=== PATIENT | female | born 1965 | race African-American/Black ===

== ENCOUNTER → 2021-11-30 15:08 | Outpatient (BNVA) | payer OTHER, SELFPAY | PROVIDERS: PCP Internal Medicine; Visit Provider Psychiatry & Neurology Neurology | DX: G25.0 Essential tremor (principal); F20.9 Schizophrenia, unspecified; Z79.899 Other long term (current) drug therapy | CPT/HCPCS: 99212 ==

== ENCOUNTER → 2022-01-27 15:21 | Outpatient (BNVA) | payer OTHER, SELFPAY | PROVIDERS: PCP Internal Medicine; Visit Provider Psychiatry & Neurology Neurology | DX: G25.0 Essential tremor (principal) | CPT/HCPCS: 99212 ==

== ENCOUNTER → 2022-02-27 10:50 | Outpatient (BNVA) | payer OTHER, SELFPAY | PROVIDERS: PCP Internal Medicine; Visit Provider Psychiatry & Neurology Neurology | DX: G25.0 Essential tremor (principal) | CPT/HCPCS: 99212 ==

== ENCOUNTER → 2022-03-29 09:43 | Outpatient (BNVA) | payer OTHER, SELFPAY | PROVIDERS: PCP Internal Medicine; Visit Provider Nurse Practitioner Family | DX: G25.0 Essential tremor (principal) | CPT/HCPCS: 99212 ==

== ENCOUNTER 2023-12-06 14:46 | Outpatient (AMB) | payer OTHER, SELFPAY ==
--- NOTE | 2023-12-06 15:00 | MHC.OFFVIS ---
Intake Vital Signs 12/06/23 15:06 Height 5 ft 8 in Weight 185 lb 2 oz BMI 28.1 BP 120/72 Blood Pressure Location Rt brachial Position Sitting Pulse 61 Pulse Source Pulse Oximeter Pulse Oximetry (%) 99 Oxygen Delivery Method Room Air Intake Visit Reasons: f/u for Tremors-Confirmed Intake Note: Patient presents F/U for tremors. she needs medication that works Allergies No Known Allergies Allergy (Verified 12/06/23 15:03) Medication List - Last Reconciled 12/06/23 by Aquiles Calderón CNP [id number] alafen [phone] mg (Genvoya) 1 tab PO DAILY hydroxyzine HCl 10 mg PO BID HPI HPI Comments History of Present Illness Details 56 y/o female patient presets for follow up of bilateral upper extremity tremor. Pt's last follow up was March 2022. Pt reports she stopped propranolol, benztropine and zonisamide. She thought it did not help and stopped it. Pt states that her tremor is really bad now, and can't write and feed patient. 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 Pt was on Zyprexa, but it stopped in 2021. Pt wants to retry benztropine. [facility] Medical History Asthma HIV (human immunodeficiency virus infection) Schizophrenia Surgical History History of ankle surgery Family History Father HTN (hypertension) Stroke Mother Tremors of nervous system Social History Alcohol intake: never Patient Tobacco Use Status: Never used Tobacco Substance Use Type: Marijuana Review of Systems ENT Reports Normal hearing present Neuro Reports Normal hearing present Physical Exam Vital Signs: Last Vital Signs Pulse 61 12/06/23 15:06 BP 120/72 12/06/23 15:06 Pulse Ox 99 12/06/23 15:06 Oxygen Delivery Method Room Air 12/06/23 15:06 BMI result Body Mass Index 28.1 Const General: cooperative and no acute distress Nutritional Appearance: average body habitus Orientation/consciousness: patient oriented x3 Neck Neck: Yes full ROM and Yes supple Resp Effort & Inspection: normal respiratory effort and able to speak in complete sentences Neuro General: patient oriented x3, gait normal and moves all extremities Cranial nerves: Yes Bilaterally intact EOM present, Yes Normal facial strength present, Yes Midline tongue present, Yes Normal hearing present, Yes Ability to bilaterally rotate head present and Yes Ability to bilaterally elevate shoulders present Cognition (Neuro): normal cognition Gait exam (Neuro): Normal gait present Motor exam (neuro): 5/5 motor strength present throughout and Tremors during motor activity present (BUE posturing and action tremor) Psych Appearance: grossly normal Mental Status: mental status grossly normal Affect: normal affect Attitude: cooperative Assessment & Plan Assessment & Plan (1) Essential tremor: Comment: BUE tremor, Familial, worsening by medications. Code(s): G25.0 - Essential tremor Plan Advised patient to try benztropine 1 mg daily. Discussed regarding Jenn Trio but patient does not want to try due to cost. Medications: New benztropine 1 mg PO DAILY 30 days 30 tabs 1RF Coding Level of Care Code Est Pt Level 3 (47438) Diagnoses Essential tremor G25.0
[2023-12-06 15:06] VITALS: BP 120/72; PULSE 61; O2SAT 99; BMI 28.1
== END 2023-12-06 15:37 | disposition home or self-care (01) ==
PROVIDERS: PCP Internal Medicine; Visit Provider Nurse Practitioner Family
DX: G25.0 Essential tremor (principal)
CPT/HCPCS: 99213

== ENCOUNTER → 2023-12-06 14:46 | Outpatient (BNVA) | payer OTHER, SELFPAY | PROVIDERS: PCP Internal Medicine; Visit Provider Nurse Practitioner Family | DX: G25.0 Essential tremor (principal) | CPT/HCPCS: 99212 ==

== ENCOUNTER 2024-01-08 15:08 | Outpatient (AMB) | payer OTHER, SELFPAY ==
--- NOTE | 2024-01-08 15:28 | MHC.OFFVIS ---
Intake Vital Signs 01/08/24 15:34 Height 5 ft 8 in Weight 185 lb 2 oz BMI 28.1 BP 124/70 Blood Pressure Location Rt brachial Position Sitting Pulse 71 Pulse Source Pulse Oximeter Pulse Oximetry (%) 91 L Oxygen Delivery Method Room Air Intake Visit Reasons: 1 mo f/u-CONF Intake Note: Patient presents for 1 month f/u. The pills are not working. Taking Benztropine 1mg. Allergies No Known Allergies Allergy (Verified 01/08/24 15:32) HPI HPI Comments History of Present Illness Details 58 y/o female patient presets for follow up of bilateral upper extremity tremor. She started benztropine 1 mg q AM, her tremor has decreased, but still having hard time to work with patient. 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 Pt was on propranolol, benztropine and zonisamide in the past. She thought it did not help and stopped it. Pt was on Zyprexa, but it stopped in 2021. Pt also has family medical hx of essential tremor. [facility] Medical History Asthma HIV (human immunodeficiency virus infection) Schizophrenia Surgical History History of ankle surgery Family History Father HTN (hypertension) Stroke Mother Tremors of nervous system Social History Alcohol intake: never Patient Tobacco Use Status: Never used Tobacco Substance Use Type: Marijuana Review of Systems Const All systems reviewed & are unremarkable except as noted in HPI and below ENT Reports Normal hearing present Neuro Reports Normal hearing present Physical Exam Vital Signs: Last Vital Signs Pulse 71 01/08/24 15:34 BP 124/70 01/08/24 15:34 Pulse Ox 91 L 01/08/24 15:34 Oxygen Delivery Method Room Air 01/08/24 15:34 BMI result Body Mass Index 28.1 Const General: cooperative and no acute distress Nutritional Appearance: average body habitus Orientation/consciousness: patient oriented x3 Neck Neck: Yes full ROM and Yes supple Resp Effort & Inspection: normal respiratory effort and able to speak in complete sentences Neuro General: patient oriented x3, gait normal and moves all extremities Cranial nerves: Yes Bilaterally intact EOM present, Yes Normal facial strength present, Yes Midline tongue present, Yes Normal hearing present, Yes Ability to bilaterally rotate head present and Yes Ability to bilaterally elevate shoulders present Cognition (Neuro): normal cognition Gait exam (Neuro): Normal gait present Motor exam (neuro): 5/5 motor strength present throughout and Tremors during motor activity present (BUE posturing and action tremor) Psych Appearance: grossly normal Mental Status: mental status grossly normal Affect: normal affect Attitude: cooperative Assessment & Plan Assessment & Plan (1) Essential tremor: Comment: BUE tremor, Familial, worsening by medications. Code(s): G25.0 - Essential tremor Plan Advised patient to try benztropine 1 mg BID. Refer patient to occupational therapy for tremor. Discussed regarding Nacho Orders: Orders OT Evaluation and Treatment Today G25.0 - Essential tremor Medications: Changed From benztropine 1 mg PO DAILY 30 days 30 tabs 1RF To benztropine 1 mg PO BID 60 tabs 1RF 30 days Coding Level of Care Code Est Pt Level 3 (46836) Diagnoses Essential tremor G25.0
[2024-01-08 15:34] VITALS: BP 124/70; PULSE 71; O2SAT 91; BMI 28.1
== END 2024-01-08 15:47 | disposition home or self-care (01) ==
PROVIDERS: PCP Internal Medicine; Visit Provider Nurse Practitioner Family
DX: G25.0 Essential tremor (principal)
CPT/HCPCS: 99213

== ENCOUNTER → 2024-01-08 15:08 | Outpatient (BNVA) | payer OTHER, SELFPAY | PROVIDERS: PCP Internal Medicine; Visit Provider Nurse Practitioner Family | DX: G25.0 Essential tremor (principal) | CPT/HCPCS: 99212 ==

== ENCOUNTER 2024-12-03 10:48 | Outpatient (AMB) | payer MEDICAID, SELFPAY ==
[2024-12-03 11:12] VITALS: BP 118/78; PULSE 80; O2SAT 97; BMI 27.4
--- NOTE | 2024-12-03 11:12 | A.OFFVIS_ITS ---
Vital Signs 12/03/24 11:12 Height 5 ft 8 in Weight 180 lb BMI 27.4 BP 118/78 Blood Pressure Location Rt brachial Position Sitting Pulse 80 Pulse Source Pulse Oximeter Pulse Oximetry (%) 97 Oxygen Delivery Method Room Air Intake Visit Reasons: Follow up Allergies No Known Allergies Allergy (Verified 12/03/24 11:15) Medication List - Last Reconciled 12/03/24 by DAVIDE Stephenson benztropine 1 mg PO BID 30 days dolutegravir-lamivudine 50-300 mg (Dovato) 1 tab PO DAILY hydroxyzine HCl 10 mg PO BID trazodone 50 mg PO BEDTIME PRN HPI Comments Details: Right-handed 59-yr-old female presents for f/u visit for essential tremor. Pt had a psychiatric hospitalization for an exacerbation of her schizophrenia, hearing increased voices, and was restarted on olanzapine 20mg qd. Pt is f/b psychiatry Dora JIANG at [facility]. Pt reports she started having BUE tremor at age 11, however over the years, the tremor has worsened over time. At this point, she does not think that her tremor has worsened since resuming the olanzapine. Patient denies any involuntary had or oral movements. Patient states her schizophrenia symptoms started when she stopped using drugs, though she can not say specifically when. She started on olanzapine at least 15 years ago. 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 She does have difficulty eating- food may fall from the spoon. She also notes she has difficulty pouring, so she switched from using a regular wood casket maker to a Keurig to reduce risk for spilling. Now also using a covered coffee cup. The tremor is more severe when she is anxious. She states that learning how to relax- such as by taking deep breathes, can be helpful. She has stopped benzotropine, as it was not helpful. She no longer drinks alcohol, but in the past alcohol did suppress the tremor. Prior tremor medication trials: Propranolol- felt this was helpful. States her psychiatrist stopped her Propranolol as she was taking Hydroxyzine. Zonisamide- thinks it was ineffective Primidone- ineffective Pt states her mother had tremor, but also had multiple hospitalizations for mental health issues. [facility] Medical History HIV (human immunodeficiency virus infection) Schizophrenia Asthma Surgical History History of ankle surgery Family History Father HTN (hypertension) Stroke Mother Tremors of nervous system Social History Alcohol intake: never Patient Tobacco Use Status: Never used Tobacco Substance Use Type: Marijuana Physical Exam Vital Signs: Last Vital Signs Pulse 80 12/03/24 11:12 BP 118/78 12/03/24 11:12 Pulse Ox 97 12/03/24 11:12 Oxygen Delivery Method Room Air 12/03/24 11:12 BMI result Body Mass Index 27.4 Const General: cooperative and no acute distress Resp Effort & Inspection: normal respiratory effort and able to speak in complete sentences Neuro Other: General: A&O x's 3 Expression: Intact Voice: Intact Tremor: Mild intermittent head tremor. Bilateral, left greater than right, postural and kinetic tremor. Tone: Mild LUE tone Dyskinesia: Very mild, intermittent, involuntary lower jaw lateral sliding movements. Gait: Stance easily, good stride, steady gait. Psych: Pleasant affect Assessment & Plan Assessment & Plan (1) Essential tremor: Comment: BUE tremor, Familial, worsening by medications. Code(s): G25.0 - Essential tremor Category: Medical (2) Anxiety: Code(s): F41.9 - Anxiety disorder, unspecified Category: Medical Plan Discontinue benztropine, as patient has stopped taking it and felt it was ineffective. Resume propranolol 10 mg b.i.d.-t.i.d. For tremor, may help anxiety as well. Encourage patient to continue strategies to reduce anxiety such as deep breathing. Concur with using covered coffee cups, Keurig coffee pottery decoration designer- to reduce risk of injury. Information shared on the International essential tremor Foundation, which is a good resource for education, learning about new assistive devices/technologies. Future considerations: Austedo, or valbenazine (though would need to confirm there would be no interactions antiviral Tx, if this has changed in the future). Pt to follow-up in 6 months or sooner prn. Medications: New olanzapine 20 mg PO DAILY propranolol 10 mg PO TID 90 tabs 6RF 30 days Discontinued benztropine Discontinued Reason: Patient no longer taking 1 mg PO BID 30 days 60 tabs 6RF Coding Level of Care Code Est Pt Level 4 (55554) Diagnoses Essential tremor G25.0 Anxiety F41.9
== END 2024-12-03 12:08 | disposition home or self-care (01) ==
PROVIDERS: PCP Internal Medicine; Visit Provider Nurse Practitioner Family
DX: G25.0 Essential tremor (principal); F41.9 Anxiety disorder, unspecified
CPT/HCPCS: 99214

== ENCOUNTER → 2024-12-03 10:48 | Outpatient (BNVA) | payer MEDICAID, SELFPAY | PROVIDERS: PCP Internal Medicine; Visit Provider Nurse Practitioner Family | DX: G25.0 Essential tremor (principal); F41.9 Anxiety disorder, unspecified | CPT/HCPCS: 99212 ==

== ENCOUNTER 2025-06-03 13:41 | Outpatient (AMB) | payer MEDICAID, SELFPAY ==
[2025-06-03 13:48] VITALS: BP 124/80; PULSE 91; O2SAT 96; BMI 29.2
--- NOTE | 2025-06-03 13:48 | MHC.OFFVIS ---
Vital Signs 06/03/25 13:48 Height 5 ft 8 in Weight 192 lb BMI 29.2 BP 124/80 Blood Pressure Location Rt brachial Position Sitting Pulse 91 Pulse Source Pulse Oximeter Pulse Oximetry (%) 96 Oxygen Delivery Method Room Air Intake Visit Reasons: 6 mnts Intake Note: Patient presents 6 month follow up for tremors. Allergies No Known Allergies Allergy (Verified 06/03/25 13:51) Medication List - Last Reconciled 06/03/25 by DAVIDE Stephenson dolutegravir-lamivudine 50-300 mg (Dovato) 1 tab PO DAILY hydroxyzine HCl 10 mg PO BID olanzapine 20 mg PO DAILY propranolol 10 mg PO TID 30 days trazodone 50 mg PO BEDTIME PRN HPI Comments Details: History of Present Illness The patient is a 59-year-old female presenting with tremor. She reports that despite previous advice to try propranolol, her symptoms have worsened. Initially, she was taking 10 mg propranolol in the morning and evening but increased the dose to 30 mg twice daily after three weeks without improvement. She denies experiencing any side effects such as lightheadedness but notes the tremor persists and is more pronounced than before. Previous medications taken for tremor include zonisamide, Primidone, and benzatropine-we are all ineffective. She considers the possibility that her current prescription of olanzapine, which she takes for her mood disorder, may contribute to her symptoms. The tremor is predominantly in her hands, but may occasionally have mild head tremor. 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 She acknowledges working steward/stewardess night may contribute to fatigue. Overall, the tremor impact on her quality of life has been significant. Patient denies any other involuntary movements, denies jaw, tongue, hand, foot movements. Patient verbalizes concern that her tremor could be a sign of [place]'s to come. She does not have a family history of Gamaliel's disease. She reports a family history of tremor including her mother who did take many different medications for her mood and her son, Though he is not on any medication which would induce tremor. 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 Pt had a psychiatric hospitalization for an exacerbation of her schizophrenia, hearing increased voices, and was restarted on olanzapine 20mg qd. Pt is f/b psychiatry Dora JIANG at [facility]. Pt reports she started having BUE tremor at age 11, however over the years, the tremor has worsened over time. At this point, she does not think that her tremor has worsened since resuming the olanzapine. Patient denies any involuntary had or oral movements. Patient states her schizophrenia symptoms started when she stopped using drugs, though she can not say specifically when. She started on olanzapine at least 15 years ago. 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 She does have difficulty eating- food may fall from the spoon. She also notes she has difficulty pouring, so she switched from using a regular sweet pickled fruit maker to a Keurig to reduce risk for spilling. Now also using a covered coffee cup. The tremor is more severe when she is anxious. She states that learning how to relax- such as by taking deep breathes, can be helpful. She has stopped benzotropine, as it was not helpful. She no longer drinks alcohol, but in the past alcohol did suppress the tremor. Prior tremor medication trials: Propranolol- felt this was helpful. States her psychiatrist stopped her Propranolol as she was taking Hydroxyzine. Zonisamide- thinks it was ineffective Primidone- ineffective Pt states her mother had tremor, but also had multiple hospitalizations for mental health issues. [facility] Medical History HIV (human immunodeficiency virus infection) Schizophrenia Asthma Surgical History History of ankle surgery Family History Father HTN (hypertension) Stroke Mother Tremors of nervous system Social History Alcohol intake: never Patient Tobacco Use Status: Never used Tobacco Substance Use Type: Marijuana Physical Exam Vital Signs: Last Vital Signs Pulse 91 06/03/25 13:48 BP 124/80 06/03/25 13:48 Pulse Ox 96 06/03/25 13:48 Oxygen Delivery Method Room Air 06/03/25 13:48 BMI result Body Mass Index 29.2 Const General: cooperative and no acute distress Resp Effort & Inspection: normal respiratory effort and able to speak in complete sentences Neuro Other: General: A&O x's 3 Expression: Intact Voice: Intact Tremor: Mild intermittent head tremor. Bilateral, left greater than right, postural and kinetic tremor. Dyskinesia: Very mild, intermittent, involuntary lower jaw lateral sliding movements. Gait: Stance easily, good stride, steady gait. Psych: Pleasant affect Psych Appearance: grossly normal Mental Status: mental status grossly normal Speech and movement: Clear speech present Affect: normal affect Assessment & Plan Assessment & Plan (1) Essential tremor: Comment: BUE tremor, Familial, worsening by medications. Code(s): G25.0 - Essential tremor Category: Medical (2) Anxiety: Code(s): F41.9 - Anxiety disorder, unspecified Category: Medical Plan Discussion Notes During the visit, we discussed the possibility that the patient's tremor may be exacerbated by the use of olanzapine. I advised the patient to consult with her psychiatrist before making any changes to her psychiatric medications. We explored potential alternatives to manage her tremor, such as amantadine, which I noted could cause nausea if not taken with food and might result in vivid dreams if taken too close to bedtime. We discussed the importance of balancing medication regimens to avoid interactions. We also reviewed surgical options for tremor management, such as deep brain stimulation and its risks, benefits, and the option of focused ultrasound, although non-reversible. I recommended trying additional medications before considering surgical intervention. Plan and patient instructions - patient has discontinued propranolol, as when she increase dose to 30 mg twice a day, it was ineffective. - Start taking amantadine as directed: break the 100 mg tab in half and take twice daily with food to prevent nausea. Adjust timings of dosing on workdays. Reviewed potential side effects such as nausea and intensified dreams. Avoid taking amantadine too close to bedtime to prevent vivid dreams. Monitor her response to amantadine closely and asking her to report back if tremor persists or side effects arise. - Reviewed family history and consider the genetic component of the tremor, providing reassurance about the nature of [place]'s and its symptoms. - Encouraged the patient to consult her psychiatrist regarding the olanzapine dosage. - Educated the patient on the benefits of trice trio, as well as deep brain stimulation for essential tremor and the alternative option of focused ultrasound, discussing the pros and cons of each. Information shared with patient on patient education resources for her to review prior to her follow-up appointment with us. - Consider looking into support groups or resources for additional information on tremor management. - If you have questions about treatments discussed today, reach out for clarification. - Continue strategies to reduce anxiety such as deep breathing. - Continue using covered coffee cups, Keurig coffee sweet potato disintegrator- to reduce risk of injury. - Information previously shared on the International essential tremor Foundation, which is a good resource for education, learning about new assistive devices/technologies. - Future considerations: Austedo, or valbenazine.. Patient was informed and verbally consented to the use of an ambient scribe for clinic note documentation during this visit. Pt to follow-up in 6 months or sooner prn. Medications: New amantadine HCl last dose at least 6 hours before bedtime 50 - 100 mg (0.5 - 1 x 100 mg) PO BID 60 tabs 3RF 30 days Coding Level of Care Code Est Pt Level 4 (05158) Diagnoses Essential tremor G25.0 Anxiety F41.9
--- OUTSIDE RECORDS SUMMARY | 2025-06-03 14:34 | XMS_ITS | Clinical Summary ---
Author Organization [address] [facility] Address [address] [place] [phone] Phone Care Team Providers Care Screwdown Operator Name Role Phone Clay Rodgers MD Primary Care Provider [phone] Allergies No known active allergies Medications traZODone (DESYREL) 50 mg tablet TAKE 1 TABLET BY MOUTH EVERY EVENING DIRECTED 4 Active dolutegravir-l amivudine (Dovato) 50-300 mg per tablet Take by mouth. 3 Active propranoloL (INDERAL) 10 mg tablet take 1 tablet (10 mg) orally 3 times a day for 30 days Active polyethylene glycol (MIRALAX) 17 gram packet DISSOLVE 1 PACKET DAILY BY MOUTH 30 packet 5 5 Active polyethylene glycol (MIRALAX) 17 gram packet Take 17 g by mouth 1 (one) time each day. 4 025 Discontinued Active Problems Problem Noted Date Diagnosed Date Menopausal bleeding 04/26/2018 Schizophrenia, chronic condition ([facility] V24, [facility] V28) 08/31/2015 Overview (10/09/2024): Follows at [place] [facility]. Dr. Chambers/ Dr. Danna Doyle. Was on Risperidal, Lamotrigine and Zyprexa. Now only on Zyprexa.( Dose increased) Asthma 08/01/2012 Overview (10/09/2024): Currently only on Albuterol HFA prn. Used Flovent, singulair in the past Human immunodeficiency virus (HIV) disease ([facility] V24, [facility] V28) 11/21/2006 Overview (10/09/2024): Sees Dr Edgar in ID at [facility] [address] Main Encounters Date Type Department Care Team Description 04/10/2025 12:00 PM EDT Office Visit Internal Medicine - [address] [phone] Felipe Mejia NP Adult general medical exam (Primary Dx); Human immunodeficiency virus (HIV) disease ([facility] V24, [facility] V28) from Last 3 Months Immunizations Name Administration Dates Next Due Hep B, Unspecified 04/15/2002 Influenza trivalent, 0.5mL, preservative free (Fluarix; FluLaval; Fluzone) ages 6mo and older (Afluria) 3 years and older 08/19/2014,10/23/2013,08/01/2012,08/11,10/22/2006,10/03/2005 Influenza, Unspecified 09/03/2023 Pneumococcal polysaccharide 23 valent (Pneumovax 23) 2yo and older 08/23/2004 Td Tetanus diptheria (Tdvax) 7yo and older 11/21/2006 Tdap Tetanus diptheria acell ular pertussis (Boostrix; Adacel) 7yo and older 10/18/2023 Surgical History Surgery Date Site/Laterality Comments TUBAL LIGATION '92 PROCEDURE: HISTORICAL TUBAL LIGATION ANKLE FRACTURE SURGERY R 01/2010 PROCEDURE: [place] OPEN TREATMENT MEDIAL MALLEOLUS FRACTURE; COMMENT: w hardware COLONOSCOPY 10/28/13 PROCEDURE: HISTORICAL COLONOSCOPY; COMMENT: normal; repeat in ten yrs Medical History Medical History Date Comments Schizophreniform disorder, c hronic condition ([facility] V24, [facility] V28) 11/21/2006 DX:Schizophrenifo rm disorder, chronic condition (HCC) Human immunodeficiency virus (HIV) disease ([facility] V24, [facility] V28) 11/21/2006 DX:Human immunodefi ciency virus (HIV) disease (HCC) Ankle fracture 01/2010 DX:Ankle fractur e; COMMENT: hx by pt,Fx on stairs carrying mattress Asthma 08/01/2012 DX:Asthma Family History Medical History Relation Name Comments No Known Problems Brother No Known Problems Daughter Hypertension Father Stroke Father Hemorrhagic No Known Problems Maternal Grandfather No Known Problems Maternal Grandmother Pneumonia Mother No Known Problems Paternal Grandfather No Known Problems Paternal Grandmother No Known Problems Sister No Known Problems Son 1 No Known Problems Son 2 Breast cancer Neg Hx Colon cancer Neg Hx Ovarian cancer Neg Hx Uterine cancer Neg Hx Relation Name Status Comments Brother Alive x2 one has ment al problems Daughter Alive Father (Age 68) Maternal Grandfather Maternal Grandmother Mother (Age 67) Paternal Grandfather Paternal Grandmother Sister Alive x3, two are alc oholic Son 1 Alive Son 2 Alive Social History Tobacco Use Types Packs/Day Years Used Date Smoking Tobacco: Former Cigarettes Q uit: 11/19/1992 Smokeless Tobacco: Never Tobacco Cessation:Counseling Given: Not Answered Alcohol Use Standard Drinks/Week Comments No 0 (1 standard drink = 0.6 oz pur e alcohol) Comments No Sex and Gender Information Value Date Recorded Sex Assigned at Not on file Legal Sex Female 6:06 PM EST Gender Identity Not on file Sexual Orientation Not on file Obstetrics History Last Filed Vital Signs Vital Sign Reading Time Taken Comments Blood Pressure 116/73 04/10/2025 11:43 AM EDT au to cuff Pulse 65 04/10/2025 11:43 AM EDT auto cuff Temperature 36.4 C (97.6 F) 04/10/2025 11:43 AM EDT Respiratory Rate - - Oxygen Saturation - - Inhaled Oxygen Concentration - - Weight 86.4 kg (190 lb 8 oz) 04/10/2025 11:43 AM EDT Height 174 cm (5' 8.5 ) 04/10/2025 11:43 AM EDT Body Mass Index 28.54 04/10/2025 11:43 AM EDT Plan of Treatment Health Maintenance Due Date Last Done Comments Meningococcal ACWY Vaccine (1 - Risk 2-dose series) 1965 MMR Vaccines (1 of 2 - Risk 2-dose series) 1981 Hepatitis A Vaccines (1 of 2 - Risk 2-dose series) 1982 Hepatitis B Vaccines (2 of 3 - Risk 3-dose series) 05/13/2002 04/15/2002 Pneumococcal Vaccine: 50+ Years (4 of 4 - PCV20 or PCV21) 11/01/2021 11/01/2016, 10/19/2015, 08/23/2004 Social Influencers of Health Screening 10/28/2022 RSV Immunization Adult Patients (1 - Risk 60-74 years 1-dose series) 2023 Breast Cancer Screening 03/15/2024 03/15/20 22, 03/09/2021, 02/05/2019, Additional history exists COVID-19 Vaccine ( season) 2024 09/15/2021, 12/15/2020, 11/24/2020 Cervical Cancer Screening: HPV 11/18/2024 11/18/2019 Influenza Vaccine (#1) 2025 , 09/03/2023, 09/15/2021, Additional history exists Depression Screening 04/10/2026 04/10/2025, 10/18/20 Cholesterol Screening (Lipid Panel) 10/18/2028 10/18/2023, 09/14/2015 DTaP,Tdap,and Td Vaccines (4 - Td or Tdap) 10/18/2033 10/18/2023, 04/15/2013, 11/21/2006, Additional history exists Colorectal Cancer Screening: Colonoscopy 06/30/2034 06/30/2024 Hepatitis C Screening Completed 05/09/2018 Zoster Vaccines Completed 08/25/2022, 03/28/2022 HIB Vaccines Aged Out No longer eligi ble based on patient's age to complete this topic HPV Vaccines Aged Out No longer eligi ble based on patient's age to complete this topic IPV Vaccines Aged Out No longer eligi ble based on patient's age to complete this topic Meningococcal B Vaccine Aged Out No l onger eligible based on patient's age to complete this topic RSV Immunization Patients Under 20 months Aged Out No longer eligible based on patient's age to complete this topic Varicella Vaccines Aged Out No longer eligible based on patient's age to complete this topic Procedures Procedure Name Priority Date/Time Associated Diagnosis Comments HM COLONOSCOPY Routine 06/30/2024 HM DEPRESSION SCREENING Routine 10/18/2023 LIPID PANEL Routine 10/18/2023 SCREENING MAMMOGRAPHY BI 2-VIEW BREAST INC CAD Routine 03/15/2022 10:40 AM EDT Encounter for screening mammogram for malignant neoplasm of breast HPV Routine 11/18/2019 HEPATITIS C SCREENING Routine 05/09/2018 from Last 3 Months or Most Recently Relevant to Health Maintenance Results * Colonoscopy (06/30/2024) Colonoscopy No Interpretation , Abstracted Anatomical Region Laterality Modality Other [facility] Provider MD HEALTH MAINTENANCE Final Result * Depression Screening (10/18/2023) Depression Screening Abstracted [facility] Provider MD HEALTH MAINTENANCE Final Result * (ABNORMAL) Lipid panel (10/18/2023) LDL/HDL Ratio 5(A) 0 - 4 Triglycerides 267(A) 0 - 150 mg/dL Cholesterol 244(A) 0 - 200 mg/dL HDL 47 >=40 mg/dL LDL Cholesterol 144(A) 0 - 100 mg/dL Blood Venous blood specimen / Unknown [facility] Provider LAB BLOOD ORDERABLES Emily l Result * SCREENING MAMMOGRAPHY BI 2-VIEW BREAST INC CAD (03/15/2022 10:40 AM EDT) Anatomical Region Laterality Modality Radiographic Sheron ging 03/09/2021 2:45 PM EDT Narrative 03/15/2022 2:05 PM EDT This is a summary report. The complete report is available in the patient's medical record. If you cannot access the medical record, please contact the sending organization for a detailed fax or copy. Full field digital screening 2D and 3D mammography, reviewed with CAD and compared to previous mammograms dating back to 01/15/2018 most recent of 03/09/2021. The breasts are composed of fatty and fibroglandular tissue. No suspicious mass, architectural distortion or suspicious calcifications are identified. IMPRESSION: : No mammographic evidence of malignancy. BIRADS 1-Negative; N. 5 year breast cancer risk assessment 1.1 % Lifetime breast cancer risk assessment 5.6 % Breast cancer risk category Low (<15%) Procedure Note Cat Hanson MD - 11/07/2022 This is a summary report. The complete report is available in thepatient's medical record. If you cannot access the medical record, pleasecontact the sending organization for a detailed fax or copy. Full field digital screening 2D and 3D mammography, reviewed with CAD andcompared to previous mammograms dating back to 01/15/2018 most recent of03/09/2021. The breasts are composed of fatty and fibroglandular tissue.No suspicious mass, architectural distortion or suspicious calcificationsare identified. IMPRESSION: : No mammographic evidence of malignancy. BIRADS 1-Negative; N. 5 year breast cancer risk assessment 1.1 % Lifetime breast cancer risk assessment 5.6 % Breast cancer risk category Low (<15%) Clay Rodgres MD IMG XR PROCEDURES Final Result * Cervical Cancer Screening: HPV (11/18/2019) Pathologist [facility] Cervical Cancer Screening: HPV Negative, Abstracted Historical Provider HEALTH MAINTENANCE Final Result * Hepatitis C Screening (05/09/2018) Pathologist [facility] Hepatitis C Screening Abstracted Historical Provider HEALTH MAINTENANCE Final Result from Last 3 Months or Most Recently Relevant to Health Maintenance Insurance MEDICAID - [place] Care Teams Screwdown Operator Relationship Specialty Start Date End Date Clay Rodgers MD [address] [place] [id number] PCP - General Internal Medicine 10/08/24
--- OUTSIDE RECORDS SUMMARY | 2025-06-03 14:34 | XMS_ITS | Clinical Summary ---
Author Organization [facility] Address [address] [place] [address] Care Team Providers Care Centerless Grinding Machine Adjuster Name Role Phone Unavailable Primary Care Provider Unavailabl e Source Comments PLEASE NOTE, if this patient is a minor, it may be UNLAWFUL to discuss sensitive information that is contained in these records (such as FAMILY PLANNING, MENTAL HEALTH or SUBSTANCE ABUSE) with the minor patient's parent or other person without the patient's specific authorization.[facility] Allergies No known active allergies Medications GENVOYA [phone] mg tab TK 1 T PO D 3 6 Active sulfamethoxazole -trimethoprim (BACTRIM DS,SEPTRA DS) 800-160 mg tablet TK 1 T PO D 5 6 Active gabapentin (NEURONTIN) 300 mg capsule 6 6 Active OLANZapine (ZYPREXA) 10 mg tablet TK 1 T PO HS UTD FOR TRAUMA RELATED THOUGHT DISTURBANCES 4 6 Active albuterol sulfate hfa 90 mcg/actuation inhalerIndicatio ns:Mild intermittent asthma without complication ([facility]) Inhale 2 Puffs into the lungs every 6 (six) hours as needed for shortness of breath or wheezing. 6.7 g 2 6 Active psyllium (METAMUCIL) packetIndication s:Constipation, unspecified constipation type Take 1 Packet by mouth once daily. Take with at least a full glass of water or other liquid. 30 Packet 2 6 Active docusate sodium (COLACE) 100 mg capsule TAKE 1 CAPSULE BY MOUTH TWICE DAILY 60 Cap 2 6 Active ibuprofen (ADVIL,MOTRIN) 600 mg tabletIndication s:Periodontitis Take 1 Tab by mouth 4 (four) times daily as needed for pain 20 Tab 07/17/201 8 Active penicillin V potassium (VEETID) 500 mg tabletIndication s:Periodontitis Take 1 Tab by mouth 4 (four) times daily 20 Tab 8 Active ibuprofen 800 mg tabletIndication s:Irreversible pulpitis Take 1 Tablet by mouth 3 (three) times daily as needed for pain 15 Tablet 2 Active Active Problems Problem Noted Date Diagnosed Date Constipation 10/19/2015 Overweight 09/07/2015 Schizophrenia, chronic condition ([facility]) 08/31/2015 Overview (04/20/2016): Follows at [place] [facility]. Dr. Chambers/ Dr. Danna Doyle. Was on Risperidal, Lamotrigine and Zyprexa. Now only on Zyprexa.( Dose increased) Tremor 08/31/2015 Overview (03/10/2016): Per prior records, intentional tremor in arms since age 16. Was evaluated by Dr. Aguilar ? Neurology. >>Was seen by Neurology at [facility] [place] on 01/04/16, Dx: stable benign essential tremor. Trial of Propranolol started. >>Neuro F/u on 03/06/16: ?Benign essential tremor vs medication induced. Trial of Gabapentin started. Plan to try Primidone if fails gabapentin. Also she was referred to Movement disorder specialist- Dr. Smith( has appt in 04/2016). Nonspecific serologic eviden ce of human immunodeficiency virus (HIV) 08/31/2015 Overview (05/08/2016): >>As per prior records she has false positive HIV serology since 2001. Repeatedly neg HIV VL. Hep C negative. >>HIV serology and Western Blot confirmation positive(08/2015). HIV VL= not detactable, CD4 count =232. referred to ID She is now following at [facility] [place] [facility] since 12/01/15. Repeat labs r/o HIV 2, with positive WB for HIV-1. f/u NN3=117 and VL <20. She was Dx HIV Elite controlled, given low CD4 count, she was started on ART( Genvoya) and Bactrim Prophylaxis. >> ID F/u on 01/26/16, f/u labs- CD4 count= 157, f/u visit in 3 mo scheduled. --> f/u on 04/26/16, labs performed. Cont same. F/u 6 mo. Plan to stop Bactrim if CD4 >200. Hyperlipidemia 08/31/2015 Overview (08/31/2015): Not on meds Asthma ([facility]) 08/27/2015 Overview (08/31/2015): Currently only on Albuterol HFA prn. Used Flovent, singulair in the past Encounters Date Type Department Care Team Description 04/01/2025 2:00 PM EDT Office Visit [facility] [address] [place] [phone] Ck Tan DDS from Last 3 Months Immunizations Immunization Administration Dates Next Due PNEUMOCOCCAL CONJUGATE PCV 13 10/19/2015 PNEUMOCOCCAL POLYSACCHARIDE PPV23 (Pneumovax 23) 08/23/2004 PPD 01/24/2016 TDAP 04/15/2013 Td (adult),2 Lf tetanus toxo id (TDVAX), preservative free 11/21/2006 Family History Medical History Relation Name Comments Heart Problems Father Stroke Father Relation Name Status Comments Father Mother Social History Tobacco Use Types Packs/Day Years Used Date Smoking Tobacco: Former Cigarettes Passive Smoke Exposure: Never Smokeless Tobacco: Never Tobacco Cessation:Counseling Given: Not Answered Comments:quit smoking when she was 31. Alcohol Use Standard Drinks/Week Comments No 0 (1 standard drink = 0.6 oz pur e alcohol) Social Connections Answer Date Recorded Connectedness 0 08/12/2024 Financial Resource Strain Answer Date R ecorded Financial Resource Strain 0 2018 Stress Answer Date Recorded Stress 0 07/09/2019 Physical Activity Answer Date Recorded Physical Activity 0 07/09/2019 Food Insecurity Answer Date Recorded Food 0 08/14/2024 Transportation Needs Answer Date Record ed Transportation 0 07/09/2019 Housing Stability Answer Date Recorded Housing 0 07/09/2019 Safety and Environment Answer Date Jordan rded Safety 0 07/09/2019 Utilities Answer Date Recorded Utilities 0 07/09/2019 Employment Answer Date Recorded Stress 0 08/12/2024 Comments No Sex and Gender Information Value Date Recorded Sex Assigned at Female 03/21/2022 7:55 AM PDT Legal Sex Female 9:38 AM PDT Gender Identity Female 03/21/2022 7:55 AM PDT Sexual Orientation Not on file Occupation Industry Job Start Date Job End Date [employer] HUSB[employer] Not on file Not on file Not on file Last Filed Vital Signs Vital Sign Reading Time Taken Comments Blood Pressure 120/80 01/13/2025 3:04 PM EST Pulse 80 01/13/2025 3:04 PM EST Temperature 36.8 C (98.2 F) 04/20/2016 2:35 PM EDT Respiratory Rate 18 04/20/2016 2:35 PM EDT Oxygen Saturation - - Inhaled Oxygen Concentration - - Weight 84.4 kg (186 lb) 12/21/2015 2:22 PM EST Height 172.7 cm (5' 8 ) 12/21/2015 2:22 PM EST Body Mass Index 28.28 12/21/2015 2:22 PM EST Plan of Treatment Health Maintenance Due Date Last Done Comments Anxiety Screening 1963 HPV Screening 1963 Pap + HPV 1963 CT Colonography 2008 FIT/gFOBT 2008 Fecal DNA 2008 Flexible Sigmoidoscopy 2008 Imm-Zoster, Recombinant (1 of 2) 2013 Breast Cancer Screening (Mammogram) 06/11/2016 06/11/2014 (Managed by [facility] Provider) Diabetes Screening 09/14/2016 09/14/2015, 09/14/2015 Annual Wellness (Adult): Indicated (All Coverage) 12/21/2016 12/21/2015 Cervical Cancer Screening 07/20/2017 Pap Smear 07/20/2017 07/20/2014 (Bita ged by Outside Provider) Imm-Pneumococcal 50+ (3 of 3 - PCV20 or PCV21) 11/01/2021 11/01/2016, 10/19/2015, 08/23/2004 Colonoscopy 10/28/2023 10/28/2013 (Bita ged by Outside Provider) Colorectal Cancer Screening 10/28/2023 [id number] ( season) 2024 09/15/2021, 12/15/2020, 11/24/2020 Lipid Screening 10/18/2024 10/18/2023, 09/14/2015 Alcohol and Drug Screen 11/19/2024 12/21/2015 Depression Annual Screen 11/19/2024 Dental Perio Charting 05/30/2025 05/28/2024, 022 Imm-Influenza (#1) 2025 09/03/2023, 1 , 09/25/2017, Additional history exists Hypertension Screening (#1) 01/13/2026 Tobacco Screening 01/21/2026 01/21/2025 Dental BW 01/23/2026 01/21/2025, 10/20, 05/15/2023, Additional history exists Dental Examination 01/23/2026 01/21/2025, 0 05/28/2024, 11/15/2023, Additional history exists Dental Prophy 01/23/2026 01/21/2025, 10/20, 05/15/2023, Additional history exists Dental FMX/Pano 07/12/2029 07/10/2024, 08/17/2022 Imm-DTaP/Tdap/Td (3 - Td or Tdap) 10/18/2033 10/18/2023, 04/15/2013, 11/21/2006 Hepatitis C Screening Completed 09/14/2015 HIV Screening Completed 10/19/2015, 08/20, 09/14/2015 Cervical Ablation/Cold-Knife Conization Discontinued Cervical Cryotherapy Discontinued Colposcopy Discontinued Endometrial Biopsy Discontinued Excision/Leep Discontinued HPV Genotyping Discontinued Vaginal Pap Discontinued Vulvoscopy Discontinued Procedures Procedure Name Priority Date/Time Associated Diagnosis Comments 9 CROWN - PORCELAIN/CERAMIC Routine 04/01/2025 2:00 PM EDT Encounter for dental examination BITEWINGS - FOUR RADIOGRAPHIC IMAGES Routine 01/21/2025 9:40 AM EST Encounter for dental examination and cleaning without abnormal findings Stage 2 grade C generalized periodontitis per AAP/EFP 2017 classification PROPHYLAXIS - ADULT Routine 01/21/2025 9 :40 AM EST Encounter for dental examination and cleaning without abnormal findings Stage 2 grade C generalized periodontitis per AAP/EFP 2017 classification PERIODIC ORAL EVALUATION ESTABLISHED PATIENT Routine 01/21/2025 9:40 AM EST Encounter for dental examination and cleaning without abnormal findings Stage 2 grade C generalized periodontitis per AAP/EFP 2017 classification PANORAMIC RADIOGRAPHIC IMAGE Routine 07/10/2024 10:40 AM EDT Periodontal disease Caries COMP PERIODONTAL EVALUATION - NEW/EST PATIENT Routine 08/17/2022 9:00 AM EDT Periodontitis HIV, QUANTATIVE Routine 10/19/2015 3:45 PM EST False positive HIV serology HEPATITIS A,B,C PANEL Routine 09/14/2015 10:00 AM EDT Routine adult health maintenance COMPREHENSIVE METABOLIC PANEL Routine 09/14/2015 10:00 AM EDT Routine adult health maintenance LIPID PANEL Routine 09/14/2015 10:00 AM EDT Hyperlipidemia from Last 3 Months or Most Recently Relevant to Health Maintenance Results * HIV, QUANTATIVE (10/19/2015 3:45 PM EST) HIV VIRAL LOAD QUAL Not detected NOT DETECT. [facility] Comment:HIV RNA not detected , unable to report quantitative results Blood specimen (specimen) Blood / Unknown 10/19/2015 3:45 PM EST 10/19/2015 4:19 PM EST Narrative [facility] - 10/27/2015 7:31 AM EST [facility] [employer] [address] [place] [address] PT ID [id number] ORD# [id number] Mook Hooker MD LAB - [place] [address], * (ABNORMAL) HEPATITIS A,B,C PANEL (09/14/2015 10:00 AM EDT) Pathologist [facility] HEPATITIS B SURFACE ANTIGEN NEGATIVE NEGATIVE [facility] HEPATITIS C VIRUS DIAGNOSTIC NEGATIVE NEGATIVE [facility] HEPATITIS A ANTIBODY TOTAL NEGATIVE NEGATIVE [facility] HEPATITIS B CORE ANTIBODY POSITIVE(A) NEGATIVE [facility] Blood specimen (specimen) Blood / Unknown 09/14/2015 10:00 AM EDT 09/14/2015 10:[address] [facility] - 09/15/2015 2:52 PM EDT [employer] [address] [place] [address] PT ID [id number] ORD# [id number] us Mook Hooker MD LAB - BLOOD DRAW Edited Resu lt - Final Performing Organization Address City/[facility]/ZIP Co de Phone Number [facility] [address] [place] [address], [place] [phone] * (ABNORMAL) LIPID PANEL (09/14/2015 10:00 AM EDT) CHOLESTEROL 191 0 - 200 mg/dL [facility] TRIGLYCERIDES 162(H) 0 - 150 mg/dL [facility] HDL CHOLESTEROL 46 >40 mg/dL [facility] LDL CALCULATED 113(H) 0 - 100 mg/dL [facility] TC-HDLC RATIO 4.2 0 - 4.4 mg/dL [facility] Blood specimen (specimen) Blood / Unknown 09/14/2015 10:00 AM EDT 09/14/2015 10:[address] [facility] - 09/14/2015 12:30 PM EDT [employer] [address] [place] [id number] PT ID [id number] ORD# [id number] us Mook Hooker MD LAB - BLOOD DRAW Final Resul t Performing Organization Address [facility]/ZIP Co de Phone Number [address] [address], [place] [phone] * COMPRE METAB PANEL (09/14/2015 10:00 AM EDT) GLUCOSE 85 70 - 100 mg/dL [facility] Comment:Reference range appl icable to fasting specimens only BUN 7 5 - 25 mg/dL [facility] CREAT 0.62 0.5 - 1.1 mg/dL [facility] GLOMERULAR FILTRATION RATE > [address] [facility] Comment: If patient is -Ugand[place], multiply result by 1.21 Chronic Kidney Disease: < 60 ml/min/1.73 square meters Kidney Failure: < 15 ml/min/1.73 square meters SODIUM 142 133 - 145 mEq/L [facility] POTASSIUM 4.0 3.5 - 5.5 mEq/L [facility] CHLORIDE 107 96 - 110 mEq/L [facility] CO2 29 21 - 32 mEq/L [facility] ANION GAP 6 3 - [address] [facility] CALCIUM 9.1 8.5 - 10.5 mg/dL [facility] TOTAL PROTEIN 6.7 6.0 - 8.0 G/dL [facility] ALBUMIN 3.9 3.2 - 5.0 G/dL [facility] BILI, TOTAL 0.5 0.0 - 1.4 mg/dL [facility] SGOT 29 10 - 42 U/L [facility] SGPT 23 10 - 60 U/L [facility] ALK PHOS 67 42 - 121 U/L [facility] Blood specimen (specimen) Blood / Unknown 09/14/2015 10:00 AM EDT 09/14/2015 10:28 AM EDT Narrative [facility] - 09/14/2015 12:30 PM EDT [facility] [employer] [address] [place] [address] PT ID [id number] ORD# [id number] us Mook Hooker MD LAB - BLOOD DRAW Final Resul t [address] [address], from Last 3 Months or Most Recently Relevant to Health Maintenance [place]
== END 2025-06-03 15:02 | disposition home or self-care (01) ==
LOC: HO.HSMS 13:42
PROVIDERS: PCP Internal Medicine; Visit Provider Nurse Practitioner Family
DX: G25.0 Essential tremor (principal); F41.9 Anxiety disorder, unspecified
CPT/HCPCS: 99214

== ENCOUNTER → 2025-06-03 13:41 | Outpatient (BNVA) | payer OTHER, SELFPAY | PROVIDERS: PCP Internal Medicine; Visit Provider Nurse Practitioner Family | DX: G25.0 Essential tremor (principal); F41.9 Anxiety disorder, unspecified | CPT/HCPCS: 99212 ==